=== PATIENT | female | born 1940 | race Caucasian/White ===

== ENCOUNTER 2017-07-01 01:05 | Emergency (ER) | payer MEDICARE, BC ==
[~2017-07-01] VITALS: Ht 154.9 cm; Wt 77.3 kg
[2017-07-01] MEDS ORDERED: OXYMETAZOLINE NASAL SPRAY 0.05%, 15ML NAS ONE (01:30)
[2017-07-01] MEDS ORDERED: OXYMETAZOLINE NASAL SPRAY 0.05%, 15ML ONE (01:46)
[2017-07-01] MEDS ORDERED: ONDANSETRON 2MG/ML, 2ML ONE (01:46)
[2017-07-01] MEDS ORDERED: ONDANSETRON ODT 4 MG PO ONE (02:00)
[2017-07-01] MEDS ORDERED: PLEASE ENTER ALLERGIES MC SCH ×2 (02:00)
[2017-07-01 02:25] LABS: HEMATOCRIT 41.7 % (34.6-47.8); HEMOGLOBIN 13.7 g/dL (11.7-16.4); WHITE BLOOD COUNT 8.8 x10^3/uL (3.4-10)
[2017-07-01] MEDS ORDERED: SODIUM CHLORIDE 0.9% 1,000ML IVBOLUS ONE (02:30)
[2017-07-01 02:34] LABS: BLOOD UREA NITROGEN 26 mg/dL (7-18)
[2017-07-01 03:35] VITALS: BP 117/86
== END 2017-07-01 05:12 | disposition home or self-care (01) ==
LOC: ED 02:44
DX: R04.0 Epistaxis (principal); I10 Essential (primary) hypertension; Z90.710 Acquired absence of both cervix and uterus
CPT/HCPCS: 36415; 80048; 82040; 85025; 86850; 86900; 93005; 96360; 96361; 99285; J7030; Q0162

== ENCOUNTER 2019-11-27 21:48 | Emergency (ER) | payer MEDICARE, BC ==
[~2019-11-27] VITALS: Ht 154.9 cm; Wt 75.4 kg
[~2019-11-27 21:48] MED LIST: AMOX1TAB64 PO; ASPI-515 PO; CALC1CAP8 PO; GLUC1TAB55 PO; LACT1CAP35 PO; LOVA20TA2 PO; PROP120C50 PO; UBID100C41 PO
--- NOTE | 2019-11-27 21:56 | NUR ---
THIS IS AN 79Y F BIB EMS FROM HOME, PT WAS SEEN AND ADMITTED LAST WEEKEND FOR NOSE BLEED AND DC SUNDAY. PT WAS SEEN AT [facility] TODAY PACKING WAS REMOVED. PER [facility] PT TO RETURN TO ER IF BRIGHT RED BLOOD, STARTS AGAIN. PT REPORTS SCANT NASAL BLEEDING, OCCASIONALLY DABBING NASAL DRAINAGE, PT DENIES COUGH, SNEEZE OR ANY NASAL PICKING, PT CONNECTED TO MONITORS, VSS, NADN
--- NOTE | 2019-11-27 21:57 | NUR ---
PA AT BEDSIDE TO ASSESS PT
[2019-11-27] MEDS ORDERED: OXYMETAZOLINE NASAL SPRAY 0.05%, 15ML NAS ONE (22:00)
[2019-11-27] MEDS ORDERED: OXYMETAZOLINE NASAL SPRAY 0.05%,30ML ONE (22:05)
--- NOTE | 2019-11-27 22:07 | NUR ---
PT MEDICATED PER MAR
--- NOTE | 2019-11-27 22:53 | NUR ---
PT RESTING ON GURNEY, PT NOSE CONTINUES TO BLEED A SCANT/ SMALL AMOUNT. PT REPORTS SHE COUGHTED UP BLOOD, " CLEARED HER THROAT AND THIS CHUNK CAME OUT." PT GESTURES TO A SMALL BLOOD CLOT/ MUCUS ON GAUZE.
--- NOTE | 2019-11-27 22:56 | NUR ---
AT BEDSIDE TO RECHECK PT AND DISCUSS POC
[2019-11-27 23:06] VITALS: BP 106/52
--- NOTE | 2019-11-27 23:07 | NUR ---
PT RESTING ON ANGIE BURTON, CALL LIGHT IN REACH, VSS
== END 2019-11-28 00:29 | disposition home or self-care (01) ==
LOC: ED 22:24
DX: R04.0 Epistaxis (principal); I10 Essential (primary) hypertension; Z90.710 Acquired absence of both cervix and uterus; Z90.89 Acquired absence of other organs
CPT/HCPCS: 99283

== ENCOUNTER 2019-11-29 18:46 | Emergency (ER) | payer MEDICARE, BC ==
[~2019-11-29] VITALS: Ht 154.9 cm; Wt 76.6 kg
--- NOTE | 2019-11-29 19:06 | NUR ---
PT CAME IN FOR SBP IN THE LOW 100s FOR A COUPLE DAYS. HX RECENT NOSE BLEED FROM HTN. PT CONNECTED TO MONITORING. CALL LIGHT IN REACH. AWAITITNG ORDERS AT THIS TIME.
--- NOTE | 2019-11-29 20:08 | NUR ---
AT BEDSIDE FOR ASSESSMENT.
[2019-11-29 20:16] VITALS: BP 145/69
--- NOTE | 2019-11-29 20:20 | NUR ---
ORTHOSTATIC VS COMPLETE. PT DENIES DIZZINESS, BUT NOT ALL THE WAY CLEAR HEADED. STATES IT TAKES A FEW SECONDS TO GET HER BARINGS.
[2019-11-29 20:41] LABS: BASOPHILS # (AUTO) 0.04 x10^3/uL (0-0.1); BASOPHILS % (AUTO) 1 % (0-1); EOSINOPHILS # (AUTO) 0.13 x10^3/uL (0-0.4); EOSINOPHILS % (AUTO) 2 % (1-7); LYMPHOCYTES # (AUTO) 2.72 x10^3/uL (1-3.4); LYMPHOCYTES % (AUTO) 41 % (22-44); MD NO; MEAN CORPUSCULAR HEMOGLOBIN 30.4 pg (27.0-34.8); MEAN CORPUSCULAR HGB CONC 33.7 g/dL (32.4-35.8); MEAN CORPUSCULAR VOLUME 90.1 fL (80-100); MEAN PLATELET VOLUME 8.9 fL (7.4-10.4); MONOCYTES # (AUTO) 0.56 x10^3/uL (0.2-0.8); MONOCYTES % (AUTO) 9 % (2-9); NEUTROPHILS # (AUTO) 3.17 x10^3/uL (1.8-6.8); NEUTROPHILS % (AUTO) 48 % (42-75); PLATELET COUNT 238 x10^3/uL (130-400); RED BLOOD COUNT 3.82 x10^6/uL (3.82-5.3); RED CELL DISTRIBUTION WIDTH 14.2 % (9.6-15.2)
[2019-11-29 20:48] LABS: ALBUMIN 3.4 g/dL (3.4-5.0); ANION GAP 7 mmol/L (5-15); CALCIUM 8.9 mg/dL (8.5-10.1); CHLORIDE 107 mmol/L (98-107); CREATININE 0.79 mg/dL (0.55-1.02)
--- NOTE | 2019-11-29 20:53 | NUR ---
ALL RESULTS ARE BACK AT THIS TIME. CHART UP FOR RECHECK.
== END 2019-11-29 21:35 | disposition home or self-care (01) ==
LOC: ED 19:22
DX: I95.9 Hypotension, unspecified (principal); R42 Dizziness and giddiness; I10 Essential (primary) hypertension; Z90.710 Acquired absence of both cervix and uterus
CPT/HCPCS: 36415; 80048; 82040; 85025; 99283